=== PATIENT | male | born 1980 | race Two or more races ===

== ENCOUNTER 2019-04-28 10:51 | Emergency (ER) | payer OTHER ==
[~2019-04-28] VITALS: Ht 170.2 cm; Wt 70.3 kg
[2019-04-28 10:55] VITALS: BP 126/88
[2019-04-28] MEDS ORDERED: SODIUM CHLORIDE 0.9% 1,000 ML IV ONE (11:13)
== END 2019-04-28 12:12 | disposition left against medical advice (07) ==
LOC: EDBD 10:51 → ER 10:51
DX: R11.0 Nausea (principal); T67.5XXA Heat exhaustion, unspecified, initial encounter; R42 Dizziness and giddiness; F17.210 Nicotine dependence, cigarettes, uncomplicated; Z59.0 Homelessness; X58.XXXA Exposure to other specified factors, initial encounter; Y93.89 Activity, other specified; Y92.89 Other specified places as the place of occurrence of the external cause; Y99.8 Other external cause status
CPT/HCPCS: 94761